=== PATIENT | female | born 1965 | race Two or more races ===

== ENCOUNTER 2020-05-22 16:33 | Outpatient (CLI) | payer OTHER | END 2020-05-22 16:37 | disposition home or self-care (01) | LOC: RAD 16:33 | PROVIDERS: ATTEND Anesthesiology Pain Medicine | DX: M79.671 Pain in right foot (principal) ==

== ENCOUNTER 2021-09-03 15:31 | Outpatient (CLI) | payer OTHER | END 2021-09-03 15:36 | disposition home or self-care (01) | LOC: LAB 15:31 | PROVIDERS: ATTEND Radiology Diagnostic Radiology | DX: N82.3 Fistula of vagina to large intestine (principal) ==

== ENCOUNTER 2021-09-04 07:11 | Outpatient (CLI) | payer OTHER | END 2021-09-04 07:34 | disposition home or self-care (01) | LOC: TOM 07:11 | PROVIDERS: ATTEND Obstetrics & Gynecology | DX: K76.0 Fatty (change of) liver, not elsewhere classified (principal); K57.90 Diverticulosis of intestine, part unspecified, without perforation or abscess without bleeding; N82.3 Fistula of vagina to large intestine; N76.5 Ulceration of vagina ==

== ENCOUNTER 2021-09-16 12:08 | Outpatient (CLI) | payer OTHER | END 2021-09-16 12:20 | disposition home or self-care (01) | LOC: RX STUDY 12:08 | PROVIDERS: ATTEND Colon & Rectal Surgery | DX: N82.3 Fistula of vagina to large intestine (principal) ==

== ENCOUNTER 2021-09-18 08:50 | Day surgery (SDC) | payer OTHER | END 2021-09-18 14:00 | disposition home or self-care (01) | LOC: AMB-ENDOS 08:50 | PROVIDERS: ATTEND Colon & Rectal Surgery | DX: K62.89 Other specified diseases of anus and rectum (principal); K64.8 Other hemorrhoids; Z20.822 Contact with and (suspected) exposure to COVID-19 ==

== ENCOUNTER 2021-09-27 13:36 | Inpatient (IN) | payer OTHER ==
[~2021-09-27] VITALS: Ht 157.5 cm; Wt 63.5 kg
[2021-09-27] MEDS ORDERED: ATORVASTA PO (14:02)
[2021-10-01] MEDS ORDERED: ROSUVASTATIN CAL5 MG (08:42)
== END 2021-10-03 13:54 | disposition home or self-care (01) | DRG 330 ==
LOC: O/R 09-30 05:39 → SURH 09-30 08:00
PROVIDERS: Surgery; ADMIT Colon & Rectal Surgery; ATTEND Colon & Rectal Surgery
PROC: 0WQF4ZZ Repair Abdominal Wall, Percutaneous Endoscopic Approach (ICD-10-PCS; 2021-09-30)
PROC: 0T7 Urinary System, Dilation (ICD-10-PCS; 2021-09-30)
PROC: 0T9B80Z Drainage of Bladder with Drainage Device, Via Natural or Artificial Opening Endoscopic (ICD-10-PCS; 2021-09-30)
PROC: 0DJD8ZZ Inspection of Lower Intestinal Tract, Via Natural or Artificial Opening Endoscopic (ICD-10-PCS; 2021-09-30)
PROC: 3E0F7SF Introduction of Other Gas into Respiratory Tract, Via Natural or Artificial Opening (ICD-10-PCS; 2021-09-30)
PROC: 0DTP4ZZ Resection of Rectum, Percutaneous Endoscopic Approach (ICD-10-PCS; principal; 2021-09-30 08:00)
PROC: 0DTN4ZZ Resection of Sigmoid Colon, Percutaneous Endoscopic Approach (ICD-10-PCS; 2021-09-30 08:00)
DX: K57.20 Diverticulitis of large intestine with perforation and abscess without bleeding (principal); N82.4 Other female intestinal-genital tract fistulae; K43.9 Ventral hernia without obstruction or gangrene; E78.00 Pure hypercholesterolemia, unspecified; Z20.822 Contact with and (suspected) exposure to COVID-19; K66.0 Peritoneal adhesions (postprocedural) (postinfection)

== ENCOUNTER 2021-10-09 14:10 | Inpatient (IN) | payer OTHER ==
[~2021-10-09] VITALS: Ht 157.5 cm; Wt 61.2 kg
[~2021-10-09 14:10] MED LIST: ATORVASTA PO; ROSUVASTATIN CAL5 MG
[2021-10-09] MEDS ORDERED: ATORVASTATIN CA10 MG PO (14:46)
--- NOTE | 2021-10-09 14:51 | NUR ---
SE RECIBE PACIENTE ALERTA Y ORIENTADA X3 QUIEN REFIERE EL JUEVES PASADO FUE OPERADA DEL INTESTINO, Y DESDE MARKO PRESENTA MUCHO DOLOR ABDOMINAL. NO PRESENTA NAUSEAS, VOMITOS NI DIARREAS AL MOMENTO DEL TRIAGE, T[place] PRESENTA FIEBRE. SE MONITOREAN S/V Y SE UBICA EN CAMA 06. PACIENTE DE LA DRA.NICOLE BLUE. LA MISMA SE COMUNICO CON EL DR. DONAHUE PARA PRESENTARLE EL CASSIA DE ESTA PACIENTE.
[2021-10-24] MEDS ORDERED: ROSUVASTATIN CAL5 MG (14:39)
[2021-10-24] MEDS ORDERED: GABAPENTIN300 M2 (14:39)
== END 2021-10-28 14:30 | disposition home or self-care (01) | DRG 393 ==
LOC: ER 14:10 → SURH 19:12 → SEC-K 19:12 → SURH 23:53
PROVIDERS: ADMIT Colon & Rectal Surgery; ATTEND Colon & Rectal Surgery
PROC: BW2110Z Computerized Tomography (CT Scan) of Abdomen and Pelvis using Low Osmolar Contrast, Unenhanced and Enhanced (ICD-10-PCS; principal; 2021-10-10)
PROC: BW2GZZZ Computerized Tomography (CT Scan) of Pelvic Region (ICD-10-PCS; 2021-10-11)
PROC: 02HV33Z Insertion of Infusion Device into Superior Vena Cava, Percutaneous Approach (ICD-10-PCS; 2021-10-13)
PROC: BW21ZZZ Computerized Tomography (CT Scan) of Abdomen and Pelvis (ICD-10-PCS; 2021-10-16)
PROC: BW25ZZZ Computerized Tomography (CT Scan) of Chest, Abdomen and Pelvis (ICD-10-PCS; 2021-10-22)
PROC: B24BZZZ Ultrasonography of Heart with Aorta (ICD-10-PCS; 2021-10-22)
PROC: BW21ZZZ Computerized Tomography (CT Scan) of Abdomen and Pelvis (ICD-10-PCS; 2021-10-22)
PROC: BW30ZZZ Magnetic Resonance Imaging (MRI) of Abdomen (ICD-10-PCS; 2021-10-24)
PROC: BW30Y0Z Magnetic Resonance Imaging (MRI) of Abdomen using Other Contrast, Unenhanced and Enhanced (ICD-10-PCS; 2021-10-24)
PROC: BW3GZZZ Magnetic Resonance Imaging (MRI) of Pelvic Region (ICD-10-PCS; 2021-10-25)
PROC: BW3GY0Z Magnetic Resonance Imaging (MRI) of Pelvic Region using Other Contrast, Unenhanced and Enhanced (ICD-10-PCS; 2021-10-25)
PROC: CW1NLZZ Planar Nuclear Medicine Imaging of Whole Body using Gallium 67 (Ga-67) (ICD-10-PCS; 2021-10-25)
DX: K91.89 Other postprocedural complications and disorders of digestive system (principal); A41.9 Sepsis, unspecified organism; N82.4 Other female intestinal-genital tract fistulae; K57.20 Diverticulitis of large intestine with perforation and abscess without bleeding; N39.0 Urinary tract infection, site not specified; R65.10 Systemic inflammatory response syndrome (SIRS) of non-infectious origin without acute organ dysfunction; Y83.8 Other surgical procedures as the cause of abnormal reaction of the patient, or of later complication, without mention of misadventure at the time of the procedure; Y81.8 Miscellaneous general- and plastic-surgery devices associated with adverse incidents, not elsewhere classified; Z20.822 Contact with and (suspected) exposure to COVID-19
CPT/HCPCS: 72198; 74185

== ENCOUNTER 2021-11-13 09:00 | Outpatient (CLI) | payer OTHER ==
[~2021-11-13 09:00] MED LIST changes: +ATORVASTATIN CA10 MG PO; +GABAPENTIN300 M2
== END 2021-11-13 09:15 | disposition home or self-care (01) ==
LOC: PPH VACUNA 09:00
PROVIDERS: ATTEND Emergency Medicine Pediatric Emergency Medicine
DX: Z23 Encounter for immunization (principal)

== ENCOUNTER 2022-10-29 06:30 | Day surgery (SDC) | payer OTHER | END 2022-10-29 10:45 | disposition home or self-care (01) | LOC: AMB-ENDOS 06:30 | PROVIDERS: ATTEND Colon & Rectal Surgery | DX: D12.0 Benign neoplasm of cecum (principal); K64.8 Other hemorrhoids; R19.4 Change in bowel habit; Z20.822 Contact with and (suspected) exposure to COVID-19 ==

== ENCOUNTER 2024-01-27 08:12 | Outpatient (CLI) | payer OTHER | END 2024-01-27 08:19 | disposition home or self-care (01) | LOC: SONOGRAMA 08:12 | PROVIDERS: ATTEND Radiology Diagnostic Radiology | DX: K80.80 Other cholelithiasis without obstruction (principal) ==